=== PATIENT | female | born 2000 | race Caucasian/White ===

== ENCOUNTER 2023-09-13 06:13 | Emergency (ER) | payer SELFPAY ==
[2023-09-13] VITALS (16 sets, daily range): BP systolic 118–144; BP diastolic 76–91; PULSE 63–89; RESP 12–27; TEMP 37.1; O2SAT 94–100
--- NOTE | ~2023-09-13 | CT_ITS ---
EXAMINATION: CT abdomen pelvis w con DATE: 09/13/2023 08:30 INDICATION: Abdominal pain, nausea and vomiting TECHNIQUE: Computed tomography (CT) of the abdomen and pelvis was performed with 100 mL Omnipaque-350 intravenous contrast. Automated exposure control and iterative reconstruction technique were employe d. The dose-length product was 374.82 mGy-cm. COMPARISON: None FINDINGS: Lung bases are clear. Heart size is normal. No pericardial or pleural effusion. Liver, gallbladder, s pleen, pancreas, bilateral adrenal glands and kidneys are normal. Bowels including the appendix are n ormal. Bladder and anteverted uterus are unremarkable. Small amount of likely physiologic free fluid in the cul-de-sac and about the right adnexa. No free intraperitoneal gas. No pathologically enlarged abdominal or pelvic lymphadenopathy. Bones are unremarkable. IMPRESSION: 1. Small amount of likely physiologic free fluid in the deep pelvis. No other acute intra-abdominal/p elvic process. Reviewed, dictated and finalized at location A. IMPRESSION: 1. Small amount of likely physiologic free fluid in the deep pelvis. No other a cute intra-abdominal/pelvic process.
--- NOTE | 2023-09-13 06:21 | PC.NURSE ---
pt has pmh of ibs and crohns disease.
[2023-09-13] MEDS: METOCLOPRAMIDE HCL INJ 10 MG/2 ML VIAL IV PUSH (06:26)
[2023-09-13] MEDS: PANTOPRAZOLE SODIUM IV 40 MG VIAL IV PUSH (06:26)
--- NOTE | 2023-09-13 06:26 | PC.NURSE ---
[facility] – [place] [phone]
--- NOTE | 2023-09-13 06:26 | ED.GENADULT ---
HPI - General Adult General Chief complaint: Nausea/Vomiting/Diarrhea <Morgan Pozo MD - Last Filed: 09/14/23 01:11> Stated complaint: abd pain, n/v <Morgan Pozo MD - Last Filed: 09/14/23 01:11> Time Seen by Provider: 09/13/23 06:18 <Morgan Pozo MD - Last Filed: 09/14/23 01:11> History of Present Illness HPI narrative: 23-year-old female presenting to the emergency department for evaluation for worsened abdominal pain. Patient does have a history of ulcers, Crohn's, IBS. Patient got off work last night and went out drinking and this worsened her ulcer pain. Patient then and having intense upper abdominal pain with associated nausea vomiting. Patient presented emergency department by EMS. <Morgan Pozo MD - Last Filed: 09/14/23 01:11> Related Data Allergies/adverse reactions: Allergies Allergy/AdvReac Type Severity Reaction Status Date / Time ampicillin Allergy Hives Verified 09/13/23 06:25 ceftriaxone [From Rocephin] Allergy Hives Verified 09/13/23 06:25 codeine Allergy Hives Verified 09/13/23 06:25 sulfamethoxazole Allergy Hives Verified 09/13/23 06:25 [From Bactrim] trimethoprim [From Bactrim] Allergy Hives Verified 09/13/23 06:25 <Morgan Pozo MD - Last Filed: 09/14/23 01:11> Review of Systems Review of Systems: All systems reviewed & are unremarkable except as noted in HPI and below <Morgan Pozo MD - Last Filed: 09/14/23 01:11> Exam Narrative: APPEARANCE: Uncomfortable HEAD: normocephalic, atraumatic. EYES: PERRLA/EOMI, conjunctivae clear. NOSE: Normal no drainage EARS:TMS clear with good light reflex. THROAT: Pharynx clear, no exudate. NECK: Supple. No adenopathy, no masses. RESPIRATORY: Airway patent, respirations nonlabored. Clear to auscultation bilaterally, no rales, rhonchi, wheezing. CARDIOVASCULAR: Regular rate and rhythm without murmurs rubs or gallops. ABDOMINAL: Upper abdominal tenderness to palpation MUSCULOSKELETAL: Moves all extremities. Strength/ROM intact, No edema, No calf tenderness. NEURO: Alert. Cranial nerves II through XII intact. Grossly intact <Morgan Pozo MD - Last Filed: 09/14/23 01:11> Course Vital Signs Vital signs: Vital Signs Temperature 98.7 F 09/13/23 06:16 Pulse Rate 89 09/13/23 06:16 Respiratory Rate 16 09/13/23 06:16 Blood Pressure 144/84 H 09/13/23 06:16 Pulse Oximetry 99 09/13/23 06:16 Oxygen Delivery Room Air 09/13/23 06:16 Temperature 98.7 F 09/13/23 06:16 Pulse Rate 65 09/13/23 10:00 Respiratory Rate 18 09/13/23 10:00 Blood Pressure 128/91 H 09/13/23 07:17 Pulse Oximetry 100 09/13/23 09:45 Oxygen Delivery Room Air 09/13/23 06:16 <Morgan Pozo MD - Last Filed: 09/14/23 01:11> Vital Signs Temperature 98.7 F 09/13/23 06:16 Pulse Rate 89 09/13/23 06:16 Respiratory Rate 16 09/13/23 06:16 Blood Pressure 144/84 H 09/13/23 06:16 Pulse Oximetry 99 09/13/23 06:16 Oxygen Delivery Room Air 09/13/23 06:16 Temperature 98.7 F 09/13/23 06:16 Pulse Rate 65 09/13/23 10:00 Respiratory Rate 18 09/13/23 10:00 Blood Pressure 128/91 H 09/13/23 07:17 Pulse Oximetry 100 09/13/23 09:45 Oxygen Delivery Room Air 09/13/23 06:16 <Mundo Vu MD - Last Filed: 09/13/23 10:38> Medical Decision Making MDM Narrative Medical decision making narrative: Patient was signed out pending results of CT scan. CT scan showed no acute intra-abdominal pathology the patient will be discharged home on Carafate Protonix Bentyl and Zofran. <Mundo Vu MD - Last Filed: 09/13/23 10:38> Vital Signs Vital Signs: Vital Signs Temperature 98.7 F 09/13/23 06:16 Pulse Rate 89 09/13/23 06:16 Respiratory Rate 16 09/13/23 06:16 Blood Pressure 144/84 H 09/13/23 06:16 Pulse Oximetry 99 09/13/23 06:16 Oxygen Delivery Room Air 09/13/23 06:16 Temperature 98.7
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
[2023-09-13 06:31] LABS: Basophils Absolute Auto 0.1 K/mm3 (0.0-0.1); Basophils Percent Auto 0.4 % (0.2-1.2); Eosinophils Absolute Auto 0.1 K/mm3 (0-0.3); Eosinophils Percent Auto 0.7 % (0-4.4); Hematocrit 40.5 % (37.0-47.0); Hemoglobin 13.9 g/dL (12.0-15.0); Immature Granulocyte Absolute 0.06 K/mm3 (0.00-0.031); Immature Granulocyte Percent A 0.4 % (0-0.5); Lymphocytes Absolute Auto 4.16 K/mm3 (0.9-3.2); Lymphocytes Percent Auto 30.1 % (18.3-44.2); Mean Corpuscular HGB Conc 34.3 g/dl (32-36); Mean Corpuscular Hemoglobin 29.6 pg (26-34); Mean Corpuscular Volume 86.2 fl (80-100); Mean Platelet Volume 8.9 fl (7.4-10.4); Neutrophils Absolute Auto 8.5 K/mm3 (1.3-6.7); Neutrophils Percent Auto 61.4 % (45.5-73.1); Platelet Count Result 441 k/mm3 (150-375); Red Cell Distribution Width 12.6 % (11.5-14.5); White Blood Count 13.8 K/mm3 (4.5-10.0)
--- NOTE | 2023-09-13 06:32 | PC.NURSE ---
this rn attempted to administer medications. pt refused GI cocktail and stated, this has never helped before, I do not want it now . this rn educated patient on benefits of medications. pt refused medication at this time.
[2023-09-13] MEDS: HYDROmorphone HCL INJ (*CRX) 1 MG/ML SYR 0.5 MG IV PUSH (06:35)
[2023-09-13 06:43] LABS: Alanine Aminotransferase 13 U/L (6-35); Alkaline Phosphatase 62 U/L (38-126); Anion Gap 14 mmol/L (4-12); Aspartate Amino Transferase 24 U/L (14-36); Bilirubin,Total 0.8 mg/dL (0.2-1.3); Blood Urea Nitrogen 9 mg/dL (7-17); Calcium 9.7 mg/dL (8.4-10.2); Carbon Dioxide 22 mmol/L (22-30); Chloride 107 mmol/L (98-107); Estimated CRCL calculation 94 ml/min; Estimated Glomerular Filt Rate > 60; Glucose 114 mg/dL (65-110); Lipase 77 U/L (23-300); Potassium 3.3 mmol/L (3.4-5.0); Sodium 143 mmol/L (137-145)
--- NOTE | 2023-09-13 07:24 | PC.NURSE ---
patient attempted to give urine sample and unable. new orders received
[2023-09-13 08:08] LABS: Beta HCG Quantitative < 2.39 mIU/ML
[2023-09-13] MEDS: HYDROmorphone HCL INJ (*CRX) 1 MG/ML SYR IV PUSH ×2 (08:08→09:23)
--- NOTE | 2023-09-13 08:14 | PC.NURSE ---
patient requested pain medication. meds given. patient vomited on the floor after receiving IV dilaudid. resting in bed at this time
[2023-09-13] MEDS: DICYCLOMINE HCL INJ 20 MG/2 ML VIAL IM (09:20)
[2023-09-13] MEDS: SUCRALFATE 1 GM TABLET PO (09:27)
[2023-09-13 10:43] LABS: Appearance Urine Cloudy (Clear); Bacteria Urine 4+ /hpf; Bilirubin Urine Negative (Negative); Blood Urine 1+ (Negative); Color Urine Yellow (Yellow); Glucose Urine UA Negative (Negative); Ketones Urine 1+ mg/dL (Negative); Leukocyte Esterase Ur 2+ LEU/UL (Negative); Need Manual Microscopic Reviewed; Nitrate Urine Negative (Negative); Protein Urine Negative (Negative); RBC Urine 0-2 /hpf (0-2); Specific Grav Ur > 1.045 (1.001-1.035); Squamous Epithelial Cell Urine Moderate /hpf (Few); Urobilinogen Urine 0.2 mg/dL (<2.0); WBC Urine 21-50 /hpf (0-3); pH Urine 6.5 (5.0-9.0)
[2023-09-13 10:56] LABS: Add Urine Microscopic? YES
== END 2023-09-13 10:50 | disposition home or self-care (01) ==
PROVIDERS: Emergency Medicine; Emergency Provider Emergency Medicine
DX: K29.70 Gastritis, unspecified, without bleeding (principal)
CPT/HCPCS: 36415; 74177; 80053; 81001; 83690; 84702; 85025; 87086; 96372; 96374; 96375; 96376; 99284; A9270; J0500; J1170; J2470; J2765; Q9967